=== PATIENT | female | born 1960 | race Caucasian/White ===

== ENCOUNTER 2018-02-09 18:24 | Emergency (ER) | payer MEDICARE, MEDICAID, SELFPAY ==
[2018-02-09 18:28] VITALS: BP 159/129; PULSE 72; RESP 16; TEMP 36.9; O2SAT 97; BMI 31.1
--- NOTE | 2018-02-09 18:56 | CT_ITS ---
STUDY: CT ABDOMEN AND PELVIS WITHOUT CONTRAST REASON FOR EXAM: Female, 57 years old. Left lower quadrant pain RADIATION DOSAGE (If Supplied By Facility): CTDIvol = ( 17.25 ) mGy, DLP = ( 797.08 ) mGycm TECHNIQUE: Transaxial images were obtained from the dome of the diaphragm to the symphysis pubis without oral contrast, and without intravenous contrast. Sagittal and coronal images were reconstructed. Individualized dose optimization techniques were used for this CT. COMPARISON: None. FINDINGS: The visualized lung bases are unremarkable. The visualized portions of the heart are within normal limits. Normal liver. Normal gallbladder and extrahepatic biliary system. There are multiple benign calcified granulomata of the spleen. Normal pancreas. Normal bilateral adrenal glands. Normal right kidney. Normal left kidney. Normal visualized stomach. Normal small intestine. Normal colon. There is abundant stool The appendix is visualized and appears normal. Normal abdominal aorta. Normal inferior vena cava. Normal retroperitoneum. Normal urinary bladder. There is atrophy of the uterus. There is no free fluid in the abdomen or pelvis Normal abdominal wall. There are diffuse degenerative changes of the visualized lumbar spine. CT/Abdomen/Pel W ORAL Cont Only IMPRESSION: No obstruction. Moderate stool Electronically Signed: Enrique Su MD at 21:29 EDT , Service support ,
--- NOTE | 2018-02-09 19:00 | RAD_ITS ---
STUDY: X-RAY CHEST REASON FOR EXAM: Female, 57 years old. Lethargy, pain TECHNIQUE: Single AP portable view of the chest. COMPARISON: 07/31/1970. FINDINGS: The lungs are clear and expanded. There is no demonstrated pleural abnormality. Normal size heart. Normal mediastinum and paty. Normal visualized pulmonary arteries. Normal visualized aortic arch and descending thoracic aorta. Normal visualized thoracic spine. Normal visualized ribs, clavicles, and shoulders. There is no demonstrated abnormality of the visualized soft tissue structures of the upper abdomen. RAD/Chest 1 View (Portable) IMPRESSION: No acute cardiopulmonary disease. Electronically Signed: Cortez Richardson DO at 19:32 EDT , Service support ,
[2018-02-09 19:24] LABS: Absolute Neutrophil Count 1.7 X10^3/uL (2.0-7.7); Basophil# 0.04 X10^3/uL; Eosinophil# 0.14 X10^3/uL; Eosinophils% 3.5 % (0-5); Hematocrit 38.6 % (37-47); Mean Corp Hgb Conc 31.1 g/gl (32-36); Mean Corpuscular Hgb 29.4 pg (27.0-32.0); Mean Corpuscular Volume 94.6 fL (81-99); Mean Platelet Vol. 9.9 fl (6.2-12.0); Monocyte% 7.5 % (0-10); Neutrophil # 1.72 X10^3/uL (2.7-7.7); POSITIVE COUNT NO; POSITIVE DIFFERENTIAL NO; POSITIVE MORPHOLOGY NO; Platelet Count 251 K/mm3 (150-450); RBC Distribution Width CV 14.8 % (11.6-14.6); Red Blood Count 4.08 M/mm3 (4.2-5.4)
[2018-02-09 19:27] VITALS: BP 98/79; PULSE 67; RESP 14; O2SAT 98
[2018-02-09] MEDS: 0.9% Normal Saline 1,000 ML 1000 ML IV ×2 (19:27)
[2018-02-09 19:35] LABS: Partial Thromboplast Time 27.1 Seconds (24.1-36.2)
[2018-02-09 19:40] LABS: ALB/GLOB Ratio 0.6 RATIO (0.9-2.4); AST(SGOT) 41 U/L (15-37); Alanine Aminotransfer ALT/SGPT 22 U/L (13-56); Alkaline Phosphatase 81 U/L (45-117); Anion Gap 7 (5-15); BUN 14 mg/dL (7-18); BUN/Creat Ratio 14.5 RATIO (10-20); Calcium,Total 8.7 mg/dL (8.5-10.1); Chloride 104 mmol/L (98-107); Creatinine, Serum 0.96 mg/dL (0.55-1.02); EST Glomerular Filtration Rate 63 mL/min (>60); Est Glom Filt Rate - Afr Amer 76 mL/min (>60); Estimated Creatinine Clearance 68.27 ml/min; Globulin 4.9 g/dL (2.2-4.2); Glucose 95 mg/dL (74-106); Lipase 390 U/L (73-393); Potassium 4.4 mmol/L (3.5-5.1); Protein, Total 7.9 g/dL (6.4-8.2); Sodium Level 139 mmol/L (136-145)
[2018-02-09 19:46] LABS: Lactic Acid 1.6 mmol/L (0.4-2.0)
[2018-02-09 20:24] LABS: Bacteria 0 SEEN /hpf (None Seen); Mucous, Urine 0 SEEN /hpf (<or=2+); Red Blood Cells-Urine 0 SEEN /hpf (0-5); Squamous Epithelial Cells - UA 0 SEEN /hpf (5-10); White Blood Cells 0 SEEN /hpf (0-5)
[2018-02-09 20:38] LABS: Color, Urine Yellow (Yellow); Glucose, Dipstick Normal (Normal); Ketone-Dipstick Negative (Negative); Leukocyte Esterase-Dipstick Negative /ul (Negative); Nitrite-Dipstick Negative (Negative); Occult Blood-Urine Negative /ul (Negative); Protein-Dipstick Negative (Negative); Urine Bilirubin Dipstick Negative (Negative); Urine Clarity Clear (Clear); Urine Urobilinogen Normal (Normal)
[2018-02-09 21:37] VITALS: BP 144/108; PULSE 81; RESP 18; O2SAT 96
--- NOTE | 2018-02-09 21:51 | ED.VISSUMM ---
- ER Visit Summary Date of Service: 02/09/18 Chief Complaint: Change in mental status History of Present Illness: The patient is a 57 F history trisomy 21. [facility]. halfway staff told family that her blood pressure was low and her temperature is down to 95. Concerned about some left lower quadrant abdominal pain issues upon her legs up. He states she has not been herself an example of this and that she did not care about her blood pressure cuff being put on. Recently diagnosed with pneumonia and was on Rocephin azithromycin and then on Levaquin. She was requiring some supplemental oxygen. No reported fevers. Physical Examination: Afebrile vital signs are stable Gen: Well-nourished well-developed obese Head: Normocephalic atraumatic Eyes: Perrl EOMI ENT: TMs clear no rhinorrhea moist mucous membranes Neck: Supple no lymphadenopathy no JVD nontender CVS: Regular rate rhythm no murmurs normal S1-S2 Respiratory: No distress clear to auscultation bilaterally chest nontender Abdomen: Soft unable to assess tenderness nondistended normal bowel sounds no masses Back: Nontender Extremity: Nontender no edema Skin: Normal color no rash Neuro: alert Test Results: CBC CMP lipase urinalysis lactic acid chest x-ray negative. CT the abdomen and pelvis showed moderate stool. Emergency Department Course and Treatment: Patient received IV fluids. I do not see anything obvious to explain the patient's symptoms are reported change in mental status. She is eating she has been relatively relaxed in the bed. Patient will be discharged back to [facility]. Plan discussed with family at bedside. Impression: 1. Abdominal pain 2. lethargy This note was generated with [employer] dictation software. It may contain incorrect words, spelling, and punctuation that were not noted in review of the chart prior to signing ED Disposition - Plan for ED Patient: Disposition: Home or Assisted Living Chief Complaint: Confusion Instructions: ED Altered Loc Referrals: Maurice Helton DO [Primary Care Provider] - Keep Mayra appointment
--- NOTE | 2018-02-09 22:24 | ED.RN ---
cleaned for urinary incontinence
== END 2018-02-09 22:24 | disposition home or self-care (01) ==
PROVIDERS: Emergency Provider Emergency Medicine; Family Provider Family Medicine; PCP Family Medicine
DX: R10.32 Left lower quadrant pain (principal); R53.83 Other fatigue; R05 Cough; E66.9 Obesity, unspecified; Q90.9 Down syndrome, unspecified; Z87.01 Personal history of pneumonia (recurrent); Z79.899 Other long term (current) drug therapy
CPT/HCPCS: 71045; 74176; 80053; 81001; 83605; 83690; 85025; 85610; 85730; 96360; 96361; 99285; J7030; P9612